=== PATIENT | male | born 1975 | race Two or more races ===

== ENCOUNTER 2025-10-07 07:41 | Emergency (ER) | payer OTHER, SELFPAY ==
[2025-10-07 08:03] VITALS: BP 114/75; PULSE 78; RESP 18; TEMP 36.7; O2SAT 99; BMI 29.5
[2025-10-07 08:25] LABS: Appearance Urine Clear; Glucose Urine UA Negative (Negative); PH 5.5 (5.0-9.0); Specific Gravity - Urine >= 1.030 (1.005-1.025); UMIC TRIGGER UACC YES
--- OUTSIDE RECORDS SUMMARY | 2025-10-07 08:41 | XMS_ITS | Patient Health Record ---
Author Organization [facility] [employer] [facility][MD] Address [address] [place] [address] Support Name Relationship Address Phone ElleEmiu Guarantor Unknown [phone] Reason For Referral No Information Medications Medication SIG (Take, Route, Frequency, Duration) Notes Start Date End Date Status DILTIAZEM 24HR ER 180 mg Capsule Extended Release 24 Hour Take 1 capsule(s) by mouth daily Oral; Duration: 0 *please review for potential update for e-prescription and drug interaction check* Diltiazem HCl 180mg Capsules, Extended Release 11/24/2014 Active Aspirin 81 MG Tablet Chewable 1 tablet once daily Oral; Duration: 0 Aspirin (ASA) 81mg Chewable Tablet 05/05/2014 Active Social History Social History Additional Details Category Social Info Options Details Migrated Social History Migrated Social History Occupation: as a [employer] Employed at [employer] Marital Status: Single Problems Problem Type SNOMED Code ICD Code Onset Dates Problem Status W/U Status Risk Notes Problem Mixed hyperlipidemia (638894889) Mixed hyperlipidemia (272.2) 05/14/20 14 Active confirmed [id number] Problem Atrial fibrillation (46158471) Atrial fibrillation (427.31) 05/05/20 14 Active confirmed [id number] Problem Prediabetes (713058723) Prediabetes (790.29) 05/14/20 14 Active confirmed [id number]- Problem Hypertension (62393792) Hypertension (401.1) 11/24/19 15 Active confirmed [id number] Problem Low back pain (946392034) Low back pain (724.2) 11/06/19 15 Problem resolved confirmed [id number] Problem Shoulder pain (84869844) Shoulder pain (719.41) 05/05/20 14 Problem resolved confirmed [id number] Plan Of Treatment No Information Insurance Providers Payer Name Payer Address Payer Phone Subscriber Number Group Number Insured Name Patient Relationship to Insured Coverage Start Date Coverage End Date [facility] + [address] [place] [phone] [id number] Eh Almeida Self - patient is the insured
--- OUTSIDE RECORDS SUMMARY | 2025-10-07 08:41 | XMS_ITS | Patient Health Record ---
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 Metabolic Panel ([id number] Reviewed date:10/18/2024 08:27:43 AM Interpretation: Performing Lab:[facility] [place], [address] [facility], Phone - [phone], Director - MDJodry Notes/Report: Glucose 117 70-99 mg/dL H BUN 21 6-24 mg/dL Creatinine 1.12 0.76-1.27 mg/dL eGFR 80 >59 mL/min/1.73 BUN/Creatinine Ratio 19 9-20 Sodium 142 134-144 mmol/L Potassium 4.1 3.5-5.2 mmol/L Chloride 104 96-106 mmol/L Carbon Dioxide, Total 22 20-29 mmol/L Calcium 9.2 8.7-10.2 mg/dL Protein, Total 6.7 6.0-8.5 g/dL Albumin 4.2 4.1-5.1 g/dL Globulin, Total 2.5 1.5-4.5 g/dL Bilirubin, Total 0.6 0.0-1.2 mg/dL Alkaline Phosphatase 116 44-121 IU/L AST (SGOT) 22 0-40 IU/L ALT (SGPT) 21 0-44 IU/L Lipid Panel-[id number] Reviewed date:10/18/2024 08:27:43 AM Interpretation: Performing Lab:[facility] [place], [address], [place], Phone - [phone], Director - MDJodry Notes/Report: Cholesterol, Total 256 100-199 mg/dL H Triglycerides 143 0-149 mg/dL HDL Cholesterol 52 >39 mg/dL VLDL Cholesterol Kimani 26 5-40 mg/dL LDL Chol Calc ([facility]) 178 0-99 mg/dL H CBC With Differential/Platel et-[id number] Reviewed date:10/18/2024 08:27:43 AM Interpretation: Performing Lab:[facility], [address] [facility], Phone - [phone], Director - Ramonita Notes/Report: WBC 9.6 3.4-10.8 x10E3/uL RBC 5.36 4.14-5.80 x10E6/uL Hemoglobin 16.1 13.0-17.7 g/dL Hematocrit 48.1 37.5-51.0 % MCV 90 79-97 fL MCH 30.0 26.6-33.0 pg MCHC 33.5 31.5-35.7 g/dL RDW 13.0 11.6-15.4 % Platelets 248 150-450 x10E3/uL Neutrophils 54 Not Estab. % Lymphs 30 Not Estab. % Monocytes 9 Not Estab. % Eos 6 Not Estab. % Basos 1 Not Estab. % Neutrophils (Absolute) 5.2 1.4-7.0 x10E3/uL Lymphs (Absolute) 2.9 0.7-3.1 x10E3/uL Monocytes(Absolute) 0.9 0.1-0.9 x10E3/uL Eos (Absolute) 0.6 0.0-0.4 x10E3/uL H Baso (Absolute) 0.1 0.0-0.2 x10E3/uL Immature Granulocytes 0 Not Estab. % Immature Grans (Abs) 0.0 0.0-0.1 x10E3/uL Hemoglobin [id number] Reviewed date:10/18/2024 08:27:43 AM Interpretation: Performing Lab:[facility], [address] [place] [address], [place], Phone - [phone], Director - Ramonita Notes/Report: Hemoglobin A1c 6.2 4.8-5.6 % H . Prediabetes: 5.7 - 6.4 Diabetes: >6.4 Glycemic control for adults with diabetes: <7.0 Uric Acid-[id number] Reviewed date:10/18/2024 08:27:43 AM Interpretation: Performing Lab:[facility] [place], Phone - [phone], - Ramonita Notes/Report: Uric Acid 6.0 3.8-8.4 mg/dL Therapeutic target for gout patients: <6.0 Lipid Panel-[id number] Reviewed date:02/11/2025 08:04:03 AM Interpretation: Performing Lab:[facility], [address] [place] [address], Phone - [phone], Director Nerissa Shipman Notes/Report: Cholesterol, Total 275 100-199 mg/dL H Triglycerides 79 0-149 mg/dL HDL Cholesterol 60 >39 mg/dL VLDL Cholesterol Kimani 13 5-40 mg/dL LDL Chol Calc ([facility]) 202 0-99 mg/dL H LDL Calc Comment: Consider evaluating for Familial Hypercholesterolemia(FH), if clinically indicated. Lipid Panel-[id number] Reviewed date:06/17/2025 07:55:08 AM Interpretation: Performing Lab:[facility], [address] [place] [address], Phone - [phone], Director Nerissa Shipman Notes/Report: Cholesterol, Total 204 100-199 mg/dL H Triglycerides 103 0-149 mg/dL HDL Cholesterol 54 >39 mg/dL VLDL Cholesterol Kimani 18 5-40 mg/dL LDL Chol Calc ([facility]) 132 0-99 mg/dL H Hemoglobin [id number] Reviewed date:06/17/2025 07:55:11 AM Interpretation: Performing Lab:[facility], [address] [place] [address], Phone - [phone], Director Nerissa Shipman Notes/Report: Hemoglobin A1c 6.1 4.8-5.6 % H . Prediabetes: 5.7 - 6.4 Diabetes: >6.4 Glycemic control for adults with diabetes: <7.0 Hemoglobin [id number] Reviewed date:02/11/2025 08:03:54 AM Interpretation: Performing Lab:[facility] [address] [place] [address], Phone - [phone], Director Nerissa Shipman Notes/Report: Hemoglobin A1c 5.9 4.8-5.6 % H . Prediabetes: 5.7 - 6.4 Diabetes: >6.4 Glycemic control for adults with diabetes: <7.0 Reason For Referral Reason persistent rash, marv luate & treat. Diagnosis 1 Follicular disorder, unspecified (L73.9) Referral Organization [facility] [address] Referring Provider First Name AISSATOU Referring Provider Last Name BAILON Referring Provider Speciality Internal M edicine Referred Provider Specialty Dermatology General Notes Christiane Mcintosh 2023 11:40:21 AM > [facility], [place], [address] [facility], [address], [place] [address], , Referral Priority Routine Medications Medication SIG (Take, Route, Frequency, Duration) Notes Start Date End Date Status Hydrocortisone 100 MG/60ML Enema 60 mL in the evening prn Rectal Once a day; Duration: 30 days 10/18/2024 Active Dupixent 300 MG/2ML Solution Auto-injector Subcutaneous; Duration: 28 Days Active Hibiclens 4 % Solution as directed Exter william twice a week; Duration: 30 days 02/12/2024 Not-Taking Berberine HCI Active Atorvastatin Calcium 20 MG Tablet TAKE 1 TABLET BY MOUTH EVERY DAY FOR 90 DAYS; Duration: 90 Active Immunizations Vaccine Route Administration Date Status Comme nts influenza IM Intramuscular 07/17/2023 Administered Tdap IM Intramuscular 10/18/2024 Administered Social History Tobacco Use: Social History Observation Description Date Details (start date - stop date) Never Smoker NA - NA Social History Tobacco Use: Social Info Question Answer Notes Tobacco Use/Smoking Are you a nonsmoker Section Notes: work: [email or web address] work: [email or web address] Tob: Social, younger, declines now ETOH: < 1 drink weekly Drug: Cannibas work: [email or web address] work: [email or web address] work: [email or web address] Tob: Social, younger ETOH: None Drug: Cannibas work: [email or web address] Tob: Social, younger ETOH: None Drug: Cannibas work: [email or web address] Tob: Social, younger, declines now ETOH: < 1 drink weekly Drug: Cannibas work: [email or web address] Tob: Social, younger, declines now ETOH: < 1 drink weekly Drug: Cannibas work: [email or web address] work: [email or web address] Problems Problem Type SNOMED Code ICD Code Onset Dates Problem Status W/U Status Risk Notes Problem Vitamin D deficiency (25738496) Vitamin D deficiency, unspecified (E55.9) Active confirmed Problem Folliculitis (37853277) Follicular disorder, unspecified (L73.9) Active confirmed Problem Lipid screening (949567953) Encounter for screening for lipoid disorders (Z13.220) Active confirmed Problem Prediabetes (881578219) Prediabetes (R73.03) Active confirmed Problem Anxiety (01275762) Anxiety (F41.9) Active confi rmed Problem Hyperlipoproteinemia (3069146) Acquired hyperlipoproteinemia (E78.5) Active confirmed Problem Adult health examination (671405051) Adult general medical exam (Z00.00) Active confirmed Problem Atrial fibrillation (19286961) Atrial fibrillation, unspecified type (I48.91) Active confirmed Problem Posttraumatic stress disorder (49297685) PTSD (post-traumatic stress disorder) (F43.10) Active confirmed Problem Seasonal allergy (390272607) Seasonal allergies (J30.2) Active confirmed Problem Erectile dysfunction (disorder) (697001961) Erectile dysfunction, unspecified erectile dysfunction type (N52.9) Active confirmed Problem Diabetes mellitus screening (844962921) Diabetes mellitus screening (Z13.1) Active confirmed Problem Nephrolithiasis (42750039) Nephrolithiasis (N20.0) Active confirmed Problem Allergic rhinitis caused by pollen (83832439) Seasonal allergic rhinitis due to pollen (J30.1) Active confirmed Problem Type II diabetes mellitus without complication (715633484) Type 2 diabetes mellitus without complication, unspecified whether nursing home insulin use (E11.9) Active confirmed Problem BMI 30+ - obesity (981532473) BMI 32.0-32.9,adult (Z68.32) Active confirmed Problem Body mass index 30.0 0 to 34.99 (151950953433836) BMI 31.0-31.9,adult (Z68.31) Active confirmed Problem Elevated fasting lipid profile (649807779437) Elevated lipids (E78.5) Active confirmed Problem Hyperlipidemia (74756954) Hyperlipidemia (E78.5) Active confirmed Vital Signs Heart Rate 99 /min 06/17/2025 Oximetry 97 % 06/17/2025 Blood pressure diastolic 82 mm Hg 06/17/2025 Height 71 in 06/17/2025 Blood pressure systolic 128 mm Hg 06/17/2025 Weight 225.3 lbs 06/17/2025 BMI 31.42 kg/m2 06/17/2025 Encounters Encounter Location Date Provider Diagnosis [facility] [address] [place] [address] 10/18/2024 AISSATOU BAILON Atrial fibrillation, unspecified type I48.91 ; Wellness examination Z00.00 ; Folliculitis L73.9 ; Seasonal allergies J30.2 ; Anxiety F41.9 ; PTSD (post-traumatic stress disorder) F43.10 ; Erectile dysfunction, unspecified erectile dysfunction type N52.9 ; Hyperlipidemia E78.5 ; Prediabetes R73.03 and Encounter for immunization [address] [facility] [address] [place] [address] 02/18/2025 AISSATOU BAILON Folliculitis L73.9 ; Hyperlipidemia E78.5 ; Seasonal allergies J30.2 ; Anxiety F41.9 ; PTSD (post-traumatic stress disorder) F43.10 and Prediabetes R73.03 [facility] [address] [place] [address] 06/17/2025 AISSATOU BAILON Folliculitis L73.9 ; Hyperlipidemia E78.5 ; Seasonal allergies J30.2 ; Anxiety F41.9 ; PTSD (post-traumatic stress disorder) F43.10 ; Prediabetes R73.03 and Encounter for examination of blood pressure without abnormal findings Z01.30 Assessments Encounter Date Diagnosis (ICD Code) Assessment Notes Treatment Notes Treatment Clinical Notes Section Notes 10/18/2024 Atrial fibrillation, unspecified type (ICD-10 - I48.91) # Folliculitis: Using Hibiclens, and tacrolimus ointmentWith no improvement. Referring to dermatology # Internal hemorrhoids post colonoscopy in 2022 at [facility]. Will obtain record, but treating with hydrocortisone enema as needed. No red flag symptoms at this time but did discuss criteria to call the office/emergency department criteria or criteria for referral. # Nephrolithiasis: Following with urologist, Past stones. #Atrial fibrillation: Patient was diagnosed with atrial fibrillation back in 2012. No longer on any medications, following with Dr. Indio Billy at [facility] cardiology. #Obesity BMI. Educated on lifestyle modifications., Have struggled with the holidays but ready to get back on track. #PTSD/anxiety: Patient states this is managed at this time. He does smoke marijuana for this, and had a medical marijuana card in [place] #Prediabetes: Hemoglobin A1c 6.2, Recent improved to 5.9 @ last visit.And now increased back to 6.2. Patient stopped taking berberine. Will continue taking berberine. Check in 3 to 4 months. #Hyperlipidemia: Total cholesterol 242 at last visit.Repeat value showing on 10/18/2024 increased lipid panel to 256, LDL 156. Start atorvastatin 10 mg. Discussed proper use and side effects repeat value in 3 to 4 months # Patient up-to-date on flu/COVID-vaccine due for Tdap obtained today. Healthcare proxy filled out it is his . PHQ-9 with a total score of 4, no concern regarding mental health at this time. Follow-up in 3 to 4 months for repeat hemoglobin A1c and lipid, sooner as needed. Patient seen and examined. Comprehensive discussion was done on the following. 1. Nutrition: It is important to follow a healthy diet based on lots of vegetables and legumes and good fat. Avoid processed food and processed carbohydrates. Prepare your own meals. Read labels and avoid high fructose corn syrup, processed chemicals added to increase shelf life and preprepared meals. Avoid fast foods. Eat slowly and plan meals for a week. Try to count calories and be mindful of daily calorie intake. Get into the habit of keeping an eye on your weight by using an appropriate scale. Learn to log exercise and discussed fitness Apps like [employer] which can help keep log off calories taken versus calories burned. Local food should be preferred. Discussed Dirty Dozen Versus Clean Fifteen. Discussed healthy supplements like fish oil, Tumeric, Curcumin, Melatonin, Resveratrol, Probiotics, Vitamin-D, Alpha-Lipoic acid, Vitamin-D and coconut oil. 2. It is important to exercise regularly. Is a good habit to walk at least 30 minutes a day. Gentle weightlifting with standard precautions to protect the back. Finding activity like cycling or hiking and get into the habit of engaging in it. Stretching before and after the exercises important. It is also important to contact me if there are any problems like shortness of breath, chest pain, back pain and joint or muscle pain associated with the exercise. 3. Discussed age appropriate screening guidelines. Colonoscopy needs to start at age 50 with stool for occult blood as appropriate. There is a new test that can test for genetic abnormalities in the stool sample, Cologuard. This would not replace a colonoscopy but could be used as a screening tool for patients who do not want a colonoscopy. We discussed the importance of early detection of colon cancer. 4. Discussed current PSA screening. PSA screening can be done in most patients between age 50 and 65. However early detection of prostate cancer needs to carefully be balanced with complications with treatment. These include incontinence, impotence etc. Each patient should decide if they would like to have this test. 5. Discussed safe driving and no use of smart phone while driving 6. Age-appropriate immunizations were discussed. A tetanus booster is needed every 10 years. Flu vaccine is recommended every year just before the start of the flu season. Shingles vaccine is recommended after age 50 but not all insurances cover it. Pneumonia vaccine is given after age 65 unless there are certain comorbidities for which it is started earlier. 7. Diagnostic labs were discussed. These could include/not limited to CBC CMP and lipids with fasting blood glucose and insulin levels. Vitamin D and hemoglobin A1c testing might be appropriate. All quetsions answered to patients satisfaction. Patient verbalized understanding of diagnosis and treatments explained. To call sooner prior to next visit it any questions/concerns arise. Case discussed with collaborating physician Eric Schneider who reviewed the assessment and plan. Chart, medications, labs, vital signs reviewed. Dictation was accomplished with the use of Broad[employer][email or web address] voice recognition software, prone to medical misidentifications and grammatical errors. This is unintentional and the practitioner does try to identify and correct these, but some could still be present. Please do not hesitate to contact practitioner for clarification. 10/18/2024 Wellness examination (ICD-10 - Z00.00) # Folliculitis: Using Hibiclens, and tacrolimus ointmentWith no improvement. Referring to dermatology # Internal hemorrhoids post colonoscopy in 2022 at [facility]. Will obtain record, but treating with hydrocortisone enema as needed. No red flag symptoms at this time but did discuss criteria to call the office/emergency department criteria or criteria for referral. # Nephrolithiasis: Following with urologist, Past stones. #Atrial fibrillation: Patient was diagnosed with atrial fibrillation back in 2012. No longer on any medications, following with Dr. Indio Billy at [facility] cardiology. #Obesity BMI. Educated on lifestyle modifications., Have struggled with the holidays but ready to get back on track. #PTSD/anxiety: Patient states this is managed at this time. He does smoke marijuana for this, and had a medical marijuana card in [place] #Prediabetes: Hemoglobin A1c 6.2, Recent improved to 5.9 @ last visit.And now increased back to 6.2. Patient stopped taking berberine. Will continue taking berberine. Check in 3 to 4 months. #Hyperlipidemia: Total cholesterol 242 at last visit.Repeat value showing on 10/18/2024 increased lipid panel to 256, LDL 156. Start atorvastatin 10 mg. Discussed proper use and side effects repeat value in 3 to 4 months # Patient up-to-date on flu/COVID-vaccine due for Tdap obtained today. Healthcare proxy filled out it is his . PHQ-9 with a total score of 4, no concern regarding mental health at this time. Follow-up in 3 to 4 months for repeat hemoglobin A1c and lipid, sooner as needed. Patient seen and examined. Comprehensive discussion was done on the following. 1. Nutrition: It is important to follow a healthy diet based on lots of vegetables and legumes and good fat. Avoid processed food and processed carbohydrates. Prepare your own meals. Read labels and avoid high fructose corn syrup, processed chemicals added to increase shelf life and preprepared meals. Avoid fast foods. Eat slowly and plan meals for a week. Try to count calories and be mindful of daily calorie intake. Get into the habit of keeping an eye on your weight by using an appropriate scale. Learn to log exercise and discussed fitness Apps like [employer] which can help keep log off calories taken versus calories burned. Local food should be preferred. Discussed Dirty Dozen Versus Clean Fifteen. Discussed healthy supplements like fish oil, Tumeric, Curcumin, Melatonin, Resveratrol, Probiotics, Vitamin-D, Alpha-Lipoic acid, Vitamin-D and coconut oil. 2. It is important to exercise regularly. Is a good habit to walk at least 30 minutes a day. Gentle weightlifting with standard precautions to protect the back. Finding activity like cycling or hiking and get into the habit of engaging in it. Stretching before and after the exercises important. It is also important to contact me if there are any problems like shortness of breath, chest pain, back pain and joint or muscle pain associated with the exercise. 3. Discussed age appropriate screening guidelines. Colonoscopy needs to start at age 50 with stool for occult blood as appropriate. There is a new test that can test for genetic abnormalities in the stool sample, Cologuard. This would not replace a colonoscopy but could be used as a screening tool for patients who do not want a colonoscopy. We discussed the importance of early detection of colon cancer. 4. Discussed current PSA screening. PSA screening can be done in most patients between age 50 and 65. However early detection of prostate cancer needs to carefully be balanced with complications with treatment. These include incontinence, impotence etc. Each patient should decide if they would like to have this test. 5. Discussed safe driving and no use of smart phone while driving 6. Age-appropriate immunizations were discussed. A tetanus booster is needed every 10 years. Flu vaccine is recommended every year just before the start of the flu season. Shingles vaccine is recommended after age 50 but not all insurances cover it. Pneumonia vaccine is given after age 65 unless there are certain comorbidities for which it is started earlier. 7. Diagnostic labs were discussed. These could include/not limited to CBC CMP and lipids with fasting blood glucose and insulin levels. Vitamin D and hemoglobin A1c testing might be appropriate. All quetsions answered to patients satisfaction. Patient verbalized understanding of diagnosis and treatments explained. To call sooner prior to next visit it any questions/concerns arise. Case discussed with collaborating physician Eric Schneider who reviewed the assessment and plan. Chart, medications, labs, vital signs reviewed. Dictation was accomplished with the use of Broadcast[employer][email or web address] voice recognition software, prone to medical misidentifications and grammatical errors. This is unintentional and the practitioner does try to identify and correct these, but some could still be present. Please do not hesitate to contact practitioner for clarification. 02/18/2025 Folliculitis (ICD-10 - L73.9) # Left shoulder pain: Fell 3 months ago on ice, followed with [facility], x-rays negative, PT with some improvement. Yesterday was lifting boxes around his house, and now is continuing to endorse left shoulder pain. Questioning rotator cuff ideology but patient wants to hold off on imaging at this time. Will start with meloxicam, discussed proper use, side effects. If continued symptoms, recommended following with orthopedics who he is already established with. # Folliculitis: Using Hibiclens, and tacrolimus ointment With Minimal improvement. Following with dermatology. Dermatology started patient on Dupixent. # Internal hemorrhoids post colonoscopy in 2022 at [facility]. Treating with hydrocortisone enema as needed. No red flag symptoms at this time but did discuss criteria to call the office/emergency department criteria or criteria for referral. # Nephrolithiasis: Following with urologist, Past stones. #Atrial fibrillation: Patient was diagnosed with atrial fibrillation back in 2012. No longer on any medications, following with Dr. Indio Billy at [facility] cardiology. #Obesity BMI. Educated on lifestyle modifications., Have struggled with the holidays but ready to get back on track. #PTSD/anxiety: Patient states this is managed at this time. He does smoke marijuana for this, and had a medical marijuana card in [place] #Prediabetes: A1c September 2024 6.2 improved to 5.29 January 2025. Continue berberine and lifestyle #Hyperlipidemia: Total cholesterol 242 at last visit.Repeat value showing on 10/18/2024 increased lipid panel to 256, LDL 156. Started atorvastatin 10 mg at last visit, has been inconsistent, but cholesterol continues to increase January2025 to 275, LDL 202. Increase atorvastatin to 20 mg. Declines coronary calcium scan. # Patient up-to-date on flu/COVID-vaccine/ Tdap. Healthcare [place] [facility] [place] . PHQ-9 with a total score of 4, no concern regarding mental health at this time. Patient to follow-up in 4 months for repeat lipid, sooner as needed All quetsions answered to patients satisfaction. Patient verbalized understanding of diagnosis and treatments explained. To call sooner prior to next visit it any questions/concerns arise. Case discussed with collaborating physician Eric Schneider who reviewed the assessment and plan. Chart, medications, labs, vital signs reviewed. Dictation was accomplished with the use of Broadcast.[email or web address] voice recognition software, prone to medical misidentifications and grammatical errors. This is unintentional and the practitioner does try to identify and correct these, but some could still be present. Please do not hesitate to contact practitioner for clarification. 02/18/2025 Hyperlipidemia (ICD-10 - E78.5) # Left shoulder pain: Fell 3 months ago on ice, followed with [facility], x-rays negative, PT with some improvement. Yesterday was lifting boxes around his house, and now is continuing to endorse left shoulder pain. Questioning rotator cuff ideology but patient wants to hold off on imaging at this time. Will start with meloxicam, discussed proper use, side effects. If continued symptoms, recommended following with orthopedics who he is already established with. # Folliculitis: Using Hibiclens, and tacrolimus ointment With Minimal improvement. Following with dermatology. Dermatology started patient on Dupixent. # Internal hemorrhoids post colonoscopy in 2022 at [facility]. Treating with hydrocortisone enema as needed. No red flag symptoms at this time but did discuss criteria to call the office/emergency department criteria or criteria for referral. # Nephrolithiasis: Following with urologist, Past stones. #Atrial fibrillation: Patient was diagnosed with atrial fibrillation back in 2012. No longer on any medications, following with Dr. Indio Billy at [facility] cardiology. #Obesity BMI. Educated on lifestyle modifications., Have struggled with the holidays but ready to get back on track. #PTSD/anxiety: Patient states this is managed at this time. He does smoke marijuana for this, and had a medical marijuana card in [place] #Prediabetes: A1c September 2024 6.2 improved to 5.29 January 2025. Continue berberine and lifestyle #Hyperlipidemia: Total cholesterol 242 at last visit.Repeat value showing on 10/18/2024 increased lipid panel to 256, LDL 156. Started atorvastatin 10 mg at last visit, has been inconsistent, but cholesterol continues to increase January2025 to 275, LDL 202. Increase atorvastatin to 20 mg. Declines coronary calcium scan. # Patient up-to-date on flu/COVID-vaccine/ Tdap. [place] [facility] [place] . PHQ-9 with a total score of 4, no concern regarding mental health at this time. Patient to follow-up in 4 months for repeat lipid, sooner as needed All quetsions answered to patients satisfaction. Patient verbalized understanding of diagnosis and treatments explained. To call sooner prior to next visit it any questions/concerns arise. Case discussed with collaborating physician Eric Schneider who reviewed the assessment and plan. Chart, medications, labs, vital signs reviewed. Dictation was accomplished with the use of Broadcast[employer][email or web address] voice recognition software, prone to medical misidentifications and grammatical errors. This is unintentional and the practitioner does try to identify and correct these, but some could still be present. Please do not hesitate to contact practitioner for clarification. 06/17/2025 Folliculitis (ICD-10 - L73.9) # Folliculitis: Using Hibiclens, and tacrolimus ointment With Minimal improvement. Following with dermatology. Dermatology started patient on Dupixent. # Internal hemorrhoids post colonoscopy in 2022 at [facility]. Treating with hydrocortisone enema as needed. No red flag symptoms at this time but did discuss criteria to call the office/emergency department criteria or criteria for referral. # Nephrolithiasis: Following with urologist, Past stones. #Atrial fibrillation: Patient was diagnosed with atrial fibrillation back in 2012. No longer on any medications, following with Dr. Indio Billy at [facility] cardiology. #Obesity BMI. Educated on lifestyle modifications. #PTSD/anxiety: Patient states this is managed at this time. He does smoke marijuana for this, and had a medical marijuana card in [place] #Prediabetes: A1c September 2024 6.2 improved to 5.29 January 2025. A1c May 2025 increased to 6.1.Stopped berberine, going to restart and continue with lifestyle. Declines metformin. #Hyperlipidemia: Total cholesterol 242 at last visit.Repeat value showing on 10/18/2024 increased lipid panel to 256, LDL 156. Cholesterol May 2025 204, LDL 132, Continue with atorvastatin 20 mg. Declines coronary calcium scan. Declines coronary calcium scan. # Patient up-to-date on flu/COVID-vaccine/ Tdap. [place] [facility] [place] . PHQ-9 with a total score of 4, no concern regarding mental health at this time. Follow-up in October for complete physical with fasting labs, sooner as needed All quetsions answered to patients satisfaction. Patient verbalized understanding of diagnosis and treatments explained. To call sooner prior to next visit it any questions/concerns arise. Case discussed with collaborating physician Eric Schneider who reviewed the assessment and plan. Chart, medications, labs, vital signs reviewed. Dictation was accomplished with the use of [email or web address] voice recognition software, prone to medical misidentifications and grammatical errors. This is unintentional and the practitioner does try to identify and correct these, but some could still be present. Please do not hesitate to contact practitioner for clarification. 06/17/2025 Seasonal allergies (ICD-10 - J30.2) # Folliculitis: Using Hibiclens, and tacrolimus ointment With Minimal improvement. Following with dermatology. Dermatology started patient on Dupixent. # Internal hemorrhoids post colonoscopy in 2022 at [facility]. Treating with hydrocortisone enema as needed. No red flag symptoms at this time but did discuss criteria to call the office/emergency department criteria or criteria for referral. # Nephrolithiasis: Following with urologist, Past stones. #Atrial fibrillation: Patient was diagnosed with atrial fibrillation back in 2012. No longer on any medications, following with Dr. Indio Billy at [facility] cardiology. #Obesity BMI. Educated on lifestyle modifications. #PTSD/anxiety: Patient states this is managed at this time. He does smoke marijuana for this, and had a medical marijuana card in [place] #Prediabetes: A1c September 2024 6.2 improved to 5.29 January 2025. A1c May 2025 increased to 6.1.Stopped berberine, going to restart and continue with lifestyle. Declines metformin. #Hyperlipidemia: Total cholesterol 242 at last visit.Repeat value showing on 10/18/2024 increased lipid panel to 256, LDL 156. Cholesterol May 2025 204, LDL 132, Continue with atorvastatin 20 mg. Declines coronary calcium scan. Declines coronary calcium scan. # Patient up-to-date on flu/COVID-vaccine/ Tdap. Healthcare [place] [facility] [place] . PHQ-9 with a total score of 4, no concern regarding mental health at this time. Follow-up in October for complete physical with fasting labs, sooner as needed All quetsions answered to patients satisfaction. Patient verbalized understanding of diagnosis and treatments explained. To call sooner prior to next visit it any questions/concerns arise. Case discussed with collaborating physician Eric Schneider who reviewed the assessment and plan. Chart, medications, labs, vital signs reviewed. Dictation was accomplished with the use of [email or web address] voice recognition software, prone to medical misidentifications and grammatical errors. This is unintentional and the practitioner does try to identify and correct these, but some could still be present. Please do not hesitate to contact practitioner for clarification. 06/17/2025 Hyperlipidemia (ICD-10 - E78.5) # Folliculitis: Using Hibiclens, and tacrolimus ointment With Minimal improvement. Following with dermatology. Dermatology started patient on Dupixent. # Internal hemorrhoids post colonoscopy in 2022 at [facility]. Treating with hydrocortisone enema as needed. No red flag symptoms at this time but did discuss criteria to call the office/emergency department criteria or criteria for referral. # Nephrolithiasis: Following with urologist, Past stones. #Atrial fibrillation: Patient was diagnosed with atrial fibrillation back in 2012. No longer on any medications, following with Dr. Indio Billy at [facility] cardiology. #Obesity BMI. Educated on lifestyle modifications. #PTSD/anxiety: Patient states this is managed at this time. He does smoke marijuana for this, and had a medical marijuana card in [place] #Prediabetes: A1c September 2024 6.2 improved to 5.29 January 2025. A1c May 2025 increased to 6.1.Stopped berberine, going to restart and continue with lifestyle. Declines metformin. #Hyperlipidemia: Total cholesterol 242 at last visit.Repeat value showing on 10/18/2024 increased lipid panel to 256, LDL 156. Cholesterol May 2025 204, LDL 132, Continue with atorvastatin 20 mg. Declines coronary calcium scan. Declines coronary calcium scan. # Patient up-to-date on flu/COVID-vaccine/ Tdap. Healthcare [place] [facility] [place] . PHQ-9 with a total score of 4, no concern regarding mental health at this time. Follow-up in October for complete physical with fasting labs, sooner as needed All quetsions answered to patients satisfaction. Patient verbalized understanding of diagnosis and treatments explained. To call sooner prior to next visit it any questions/concerns arise. Case discussed with collaborating physician Eric Schneider who reviewed the assessment and plan. Chart, medications, labs, vital signs reviewed. Dictation was accomplished with the use of [email or web address] voice recognition software, prone to medical misidentifications and grammatical errors. This is unintentional and the practitioner does try to identify and correct these, but some could still be present. Please do not hesitate to contact practitioner for clarification. 02/18/2025 Seasonal allergies (ICD-10 - J30.2) # Left shoulder pain: Fell 3 months ago on ice, followed with [facility], x-rays negative, PT with some improvement. Yesterday was lifting boxes around his house, and now is continuing to endorse left shoulder pain. Questioning rotator cuff ideology but patient wants to hold off on imaging at this time. Will start with meloxicam, discussed proper use, side effects. If continued symptoms, recommended following with orthopedics who he is already established with. # Folliculitis: Using Hibiclens, and tacrolimus ointment With Minimal improvement. Following with dermatology. Dermatology started patient on Dupixent. # Internal hemorrhoids post colonoscopy in 2022 at [facility]. Treating with hydrocortisone enema as needed. No red flag symptoms at this time but did discuss criteria to call the office/emergency department criteria or criteria for referral. # Nephrolithiasis: Following with urologist, Past stones. #Atrial fibrillation: Patient was diagnosed with atrial fibrillation back in 2012. No longer on any medications, following with Dr. Indio Billy at [facility] cardiology. #Obesity BMI. Educated on lifestyle modifications., Have struggled with the holidays but ready to get back on track. #PTSD/anxiety: Patient states this is managed at this time. He does smoke marijuana for this, and had a medical marijuana card in [place] #Prediabetes: A1c September 2024 6.2 improved to 5.29 January 2025. Continue berberine and lifestyle #Hyperlipidemia: Total cholesterol 242 at last visit.Repeat value showing on 10/18/2024 increased lipid panel to 256, LDL 156. Started atorvastatin 10 mg at last visit, has been inconsistent, but cholesterol continues to increase January2025 to 275, LDL 202. Increase atorvastatin to 20 mg. Declines coronary calcium scan. # Patient up-to-date on flu/COVID-vaccine/ Tdap. Healthcare [place] [facility] [place] . PHQ-9 with a total score of 4, no concern regarding mental health at this time. Patient to follow-up in 4 months for repeat lipid, sooner as needed All quetsions answered to patients satisfaction. Patient verbalized understanding of diagnosis and treatments explained. To call sooner prior to next visit it any questions/concerns arise. Case discussed with collaborating physician Eric Schneider who reviewed the assessment and plan. Chart, medications, labs, vital signs reviewed. Dictation was accomplished with the use of [email or web address] voice recognition software, prone to medical misidentifications and grammatical errors. This is unintentional and the practitioner does try to identify and correct these, but some could still be present. Please do not hesitate to contact practitioner for clarification. 10/18/2024 Folliculitis (ICD-10 - L73.9) # Folliculitis: Using Hibiclens, and tacrolimus ointmentWith no improvement. Referring to dermatology # Internal hemorrhoids post colonoscopy in 2022 at [facility]. Will obtain record, but treating with hydrocortisone enema as needed. No red flag symptoms at this time but did discuss criteria to call the office/emergency department criteria or criteria for referral. # Nephrolithiasis: Following with urologist, Past stones. #Atrial fibrillation: Patient was diagnosed with atrial fibrillation back in 2012. No longer on any medications, following with Dr. Indio Billy at [facility] cardiology. #Obesity BMI. Educated on lifestyle modifications., Have struggled with the holidays but ready to get back on track. #PTSD/anxiety: Patient states this is managed at this time. He does smoke marijuana for this, and had a medical marijuana card in [place] #Prediabetes: Hemoglobin A1c 6.2, Recent improved to 5.9 @ last visit.And now increased back to 6.2. Patient stopped taking berberine. Will continue taking berberine. Check in 3 to 4 months. #Hyperlipidemia: Total cholesterol 242 at last visit.Repeat value showing on 10/18/2024 increased lipid panel to 256, LDL 156. Start atorvastatin 10 mg. Discussed proper use and side effects repeat value in 3 to 4 months # Patient up-to-date on flu/COVID-vaccine due for Tdap obtained today. Healthcare proxy filled out it is his . PHQ-9 with a total score of 4, no concern regarding mental health at this time. Follow-up in 3 to 4 months for repeat hemoglobin A1c and lipid, sooner as needed. Patient seen and examined. Comprehensive discussion was done on the following. 1. Nutrition: It is important to follow a healthy diet based on lots of vegetables and legumes and good fat. Avoid processed food and processed carbohydrates. Prepare your own meals. Read labels and avoid high fructose corn syrup, processed chemicals added to increase shelf life and preprepared meals. Avoid fast foods. Eat slowly and plan meals for a week. Try to count calories and be mindful of daily calorie intake. Get into the habit of keeping an eye on your weight by using an appropriate scale. Learn to log exercise and discussed fitness Apps like myfitnesspal/loseit which can help keep log off calories taken versus calories burned. Local food should be preferred. Discussed Dirty Dozen Versus Clean Fifteen. Discussed healthy supplements like fish oil, Tumeric, Curcumin, Melatonin, Resveratrol, Probiotics, Vitamin-D, Alpha-Lipoic acid, Vitamin-D and coconut oil. 2. It is important to exercise regularly. Is a good habit to walk at least 30 minutes a day. Gentle weightlifting with standard precautions to protect the back. Finding activity like cycling or hiking and get into the habit of engaging in it. Stretching before and after the exercises important. It is also important to contact me if there are any problems like shortness of breath, chest pain, back pain and joint or muscle pain associated with the exercise. 3. Discussed age appropriate screening guidelines. Colonoscopy needs to start at age 50 with stool for occult blood as appropriate. There is a new test that can test for genetic abnormalities in the stool sample, Cologuard. This would not replace a colonoscopy but could be used as a screening tool for patients who do not want a colonoscopy. We discussed the importance of early detection of colon cancer. 4. Discussed current PSA screening. PSA screening can be done in most patients between age 50 and 65. However early detection of prostate cancer needs to carefully be balanced with complications with treatment. These include incontinence, impotence etc. Each patient should decide if they would like to have this test. 5. Discussed safe driving and no use of smart phone while driving 6. Age-appropriate immunizations were discussed. A tetanus booster is needed every 10 years. Flu vaccine is recommended every year just before the start of the flu season. Shingles vaccine is recommended after age 50 but not all insurances cover it. Pneumonia vaccine is given after age 65 unless there are certain comorbidities for which it is started earlier. 7. Diagnostic labs were discussed. These could include/not limited to CBC CMP and lipids with fasting blood glucose and insulin levels. Vitamin D and hemoglobin A1c testing might be appropriate. All quetsions answered to patients satisfaction. Patient verbalized understanding of diagnosis and treatments explained. To call sooner prior to next visit it any questions/concerns arise. Case discussed with collaborating physician Eric Schneider who reviewed the assessment and plan. Chart, medications, labs, vital signs reviewed. Dictation was accomplished with the use of [email or web address] voice recognition software, prone to medical misidentifications and grammatical errors. This is unintentional and the practitioner does try to identify and correct these, but some could still be present. Please do not hesitate to contact practitioner for clarification. 10/18/2024 Seasonal allergies (ICD-10 - J30.2) # Folliculitis: Using Hibiclens, and tacrolimus ointmentWith no improvement. Referring to dermatology # Internal hemorrhoids post colonoscopy in 2022 at [facility]. Will obtain record, but treating with hydrocortisone enema as needed. No red flag symptoms at this time but did discuss criteria to call the office/emergency department criteria or criteria for referral. # Nephrolithiasis: Following with urologist, Past stones. #Atrial fibrillation: Patient was diagnosed with atrial fibrillation back in 2012. No longer on any medications, following with Dr. Indio Billy at [facility] cardiology. #Obesity BMI. Educated on lifestyle modifications., Have struggled with the holidays but ready to get back on track. #PTSD/anxiety: Patient states this is managed at this time. He does smoke marijuana for this, and had a medical marijuana card in [place] #Prediabetes: Hemoglobin A1c 6.2, Recent improved to 5.9 @ last visit.And now increased back to 6.2. Patient stopped taking berberine. Will continue taking berberine. Check in 3 to 4 months. #Hyperlipidemia: Total cholesterol 242 at last visit.Repeat value showing on 10/18/2024 increased lipid panel to 256, LDL 156. Start atorvastatin 10 mg. Discussed proper use and side effects repeat value in 3 to 4 months # Patient up-to-date on flu/COVID-vaccine due for Tdap obtained today. Healthcare proxy filled out it is his . PHQ-9 with a total score of 4, no concern regarding mental health at this time. Follow-up in 3 to 4 months for repeat hemoglobin A1c and lipid, sooner as needed. Patient seen and examined. Comprehensive discussion was done on the following. 1. Nutrition: It is important to follow a healthy diet based on lots of vegetables and legumes and good fat. Avoid processed food and processed carbohydrates. Prepare your own meals. Read labels and avoid high fructose corn syrup, processed chemicals added to increase shelf life and preprepared meals. Avoid fast foods. Eat slowly and plan meals for a week. Try to count calories and be mindful of daily calorie intake. Get into the habit of keeping an eye on your weight by using an appropriate scale. Learn to log exercise and discussed fitness Apps like Cloudcampal/loseit which can help keep log off calories taken versus calories burned. Local food should be preferred. Discussed Dirty Dozen Versus Clean Fifteen. Discussed healthy supplements like fish oil, Tumeric, Curcumin, Melatonin, Resveratrol, Probiotics, Vitamin-D, Alpha-Lipoic acid, Vitamin-D and coconut oil. 2. It is important to exercise regularly. Is a good habit to walk at least 30 minutes a day. Gentle weightlifting with standard precautions to protect the back. Finding activity like cycling or hiking and get into the habit of engaging in it. Stretching before and after the exercises important. It is also important to contact me if there are any problems like shortness of breath, chest pain, back pain and joint or muscle pain associated with the exercise. 3. Discussed age appropriate screening guidelines. Colonoscopy needs to start at age 50 with stool for occult blood as appropriate. There is a new test that can test for genetic abnormalities in the stool sample, Cologuard. This would not replace a colonoscopy but could be used as a screening tool for patients who do not want a colonoscopy. We discussed the importance of early detection of colon cancer. 4. Discussed current PSA screening. PSA screening can be done in most patients between age 50 and 65. However early detection of prostate cancer needs to carefully be balanced with complications with treatment. These include incontinence, impotence etc. Each patient should decide if they would like to have this test. 5. Discussed safe driving and no use of smart phone while driving 6. Age-appropriate immunizations were discussed. A tetanus booster is needed every 10 years. Flu vaccine is recommended every year just before the start of the flu season. Shingles vaccine is recommended after age 50 but not all insurances cover it. Pneumonia vaccine is given after age 65 unless there are certain comorbidities for which it is started earlier. 7. Diagnostic labs were discussed. These could include/not limited to CBC CMP and lipids with fasting blood glucose and insulin levels. Vitamin D and hemoglobin A1c testing might be appropriate. All quetsions answered to patients satisfaction. Patient verbalized understanding of diagnosis and treatments explained. To call sooner prior to next visit it any questions/concerns arise. Case discussed with collaborating physician Eric Schneider who reviewed the assessment and plan. Chart, medications, labs, vital signs reviewed. Dictation was accomplished with the use of [email or web address] voice recognition software, prone to medical misidentifications and grammatical errors. This is unintentional and the practitioner does try to identify and correct these, but some could still be present. Please do not hesitate to contact practitioner for clarification. 02/18/2025 Anxiety (ICD-10 - F41.9) # Left shoulder pain: Fell 3 months ago on ice, followed with [facility], x-rays negative, PT with some improvement. Yesterday was lifting boxes around his house, and now is continuing to endorse left shoulder pain. Questioning rotator cuff ideology but patient wants to hold off on imaging at this time. Will start with meloxicam, discussed proper use, side effects. If continued symptoms, recommended following with orthopedics who he is already established with. # Folliculitis: Using Hibiclens, and tacrolimus ointment With Minimal improvement. Following with dermatology. Dermatology started patient on Dupixent. # Internal hemorrhoids post colonoscopy in 2022 at [facility]. Treating with hydrocortisone enema as needed. No red flag symptoms at this time but did discuss criteria to call the office/emergency department criteria or criteria for referral. # Nephrolithiasis: Following with urologist, Past stones. #Atrial fibrillation: Patient was diagnosed with atrial fibrillation back in 2012. No longer on any medications, following with Dr. Indio Billy at [facility] cardiology. #Obesity BMI. Educated on lifestyle modifications., Have struggled with the holidays but ready to get back on track. #PTSD/anxiety: Patient states this is managed at this time. He does smoke marijuana for this, and had a medical marijuana card in [place] #Prediabetes: A1c September 2024 6.2 improved to 5.29 January 2025. Continue berberine and lifestyle #Hyperlipidemia: Total cholesterol 242 at last visit.Repeat value showing on 10/18/2024 increased lipid panel to 256, LDL 156. Started atorvastatin 10 mg at last visit, has been inconsistent, but cholesterol continues to increase January2025 to 275, LDL 202. Increase atorvastatin to 20 mg. Declines coronary calcium scan. # Patient up-to-date on flu/COVID-vaccine/ Tdap. [place] [facility] [place] . PHQ-9 with a total score of 4, no concern regarding mental health at this time. Patient to follow-up in 4 months for repeat lipid, sooner as needed All quetsions answered to patients satisfaction. Patient verbalized understanding of diagnosis and treatments explained. To call sooner prior to next visit it any questions/concerns arise. Case discussed with collaborating physician Eric Schneider who reviewed the assessment and plan. Chart, medications, labs, vital signs reviewed. Dictation was accomplished with the use of [email or web address] voice recognition software, prone to medical misidentifications and grammatical errors. This is unintentional and the practitioner does try to identify and correct these, but some could still be present. Please do not hesitate to contact practitioner for clarification. 06/17/2025 Anxiety (ICD-10 - F41.9) # Folliculitis: Using Hibiclens, and tacrolimus ointment With Minimal improvement. Following with dermatology. Dermatology started patient on Dupixent. # Internal hemorrhoids post colonoscopy in 2022 at [facility]. Treating with hydrocortisone enema as needed. No red flag symptoms at this time but did discuss criteria to call the office/emergency department criteria or criteria for referral. # Nephrolithiasis: Following with urologist, Past stones. #Atrial fibrillation: Patient was diagnosed with atrial fibrillation back in 2012. No longer on any medications, following with Dr. Indio Billy at [facility] cardiology. #Obesity BMI. Educated on lifestyle modifications. #PTSD/anxiety: Patient states this is managed at this time. He does smoke marijuana for this, and had a medical marijuana card in [place] #Prediabetes: A1c September 2024 6.2 improved to 5.29 January 2025. A1c May 2025 increased to 6.1.Stopped berberine, going to restart and continue with lifestyle. Declines metformin. #Hyperlipidemia: Total cholesterol 242 at last visit.Repeat value showing on 10/18/2024 increased lipid panel to 256, LDL 156. Cholesterol May 2025 204, LDL 132, Continue with atorvastatin 20 mg. Declines coronary calcium scan. Declines coronary calcium scan. # Patient up-to-date on flu/COVID-vaccine/ Tdap. [place] [facility] [place] . PHQ-9 with a total score of 4, no concern regarding mental health at this time. Follow-up in October for complete physical with fasting labs, sooner as needed All quetsions answered to patients satisfaction. Patient verbalized understanding of diagnosis and treatments explained. To call sooner prior to next visit it any questions/concerns arise. Case discussed with collaborating physician Eric Schneider who reviewed the assessment and plan. Chart, medications, labs, vital signs reviewed. Dictation was accomplished with the use of [employer][email or web address] voice recognition software, prone to medical misidentifications and grammatical errors. This is unintentional and the practitioner does try to identify and correct these, but some could still be present. Please do not hesitate to contact practitioner for clarification. 06/17/2025 PTSD (post-traumatic stress disorder) (ICD-10 - F43.10) # Folliculitis: Using Hibiclens, and tacrolimus ointment With Minimal improvement. Following with dermatology. Dermatology started patient on Dupixent. # Internal hemorrhoids post colonoscopy in 2022 at [facility]. Treating with hydrocortisone enema as needed. No red flag symptoms at this time but did discuss criteria to call the office/emergency department criteria or criteria for referral. # Nephrolithiasis: Following with urologist, Past stones. #Atrial fibrillation: Patient was diagnosed with atrial fibrillation back in 2012. No longer on any medications, following with Dr. Indio Billy at [facility] cardiology. #Obesity BMI. Educated on lifestyle modifications. #PTSD/anxiety: Patient states this is managed at this time. He does smoke marijuana for this, and had a medical marijuana card in [place] #Prediabetes: A1c September 2024 6.2 improved to 5.29 January 2025. A1c May 2025 increased to 6.1.Stopped berberine, going to restart and continue with lifestyle. Declines metformin. #Hyperlipidemia: Total cholesterol 242 at last visit.Repeat value showing on 10/18/2024 increased lipid panel to 256, LDL 156. Cholesterol May 2025 204, LDL 132, Continue with atorvastatin 20 mg. Declines coronary calcium scan. Declines coronary calcium scan. # Patient up-to-date on flu/COVID-vaccine/ Tdap. [place] [facility] [place] . PHQ-9 with a total score of 4, no concern regarding mental health at this time. Follow-up in October for complete physical with fasting labs, sooner as needed All quetsions answered to patients satisfaction. Patient verbalized understanding of diagnosis and treatments explained. To call sooner prior to next visit it any questions/concerns arise. Case discussed with collaborating physician Eric Schneider who reviewed the assessment and plan. Chart, medications, labs, vital signs reviewed. Dictation was accomplished with the use of [email or web address] voice recognition software, prone to medical misidentifications and grammatical errors. This is unintentional and the practitioner does try to identify and correct these, but some could still be present. Please do not hesitate to contact practitioner for clarification. 02/18/2025 PTSD (post-traumatic stress disorder) (ICD-10 - F43.10) # Left shoulder pain: Fell 3 months ago on ice, followed with [facility], x-rays negative, PT with some improvement. Yesterday was lifting boxes around his house, and now is continuing to endorse left shoulder pain. Questioning rotator cuff ideology but patient wants to hold off on imaging at this time. Will start with meloxicam, discussed proper use, side effects. If continued symptoms, recommended following with orthopedics who he is already established with. # Folliculitis: Using Hibiclens, and tacrolimus ointment With Minimal improvement. Following with dermatology. Dermatology started patient on Dupixent. # Internal hemorrhoids post colonoscopy in 2022 at [facility]. Treating with hydrocortisone enema as needed. No red flag symptoms at this time but did discuss criteria to call the office/emergency department criteria or criteria for referral. # Nephrolithiasis: Following with urologist, Past stones. #Atrial fibrillation: Patient was diagnosed with atrial fibrillation back in 2012. No longer on any medications, following with Dr. Indio Billy at [facility] cardiology. #Obesity BMI. Educated on lifestyle modifications., Have struggled with the holidays but ready to get back on track. #PTSD/anxiety: Patient states this is managed at this time. He does smoke marijuana for this, and had a medical marijuana card in [place] #Prediabetes: A1c September 2024 6.2 improved to 5.29 January 2025. Continue berberine and lifestyle #Hyperlipidemia: Total cholesterol 242 at last visit.Repeat value showing on 10/18/2024 increased lipid panel to 256, LDL 156. Started atorvastatin 10 mg at last visit, has been inconsistent, but cholesterol continues to increase January2025 to 275, LDL 202. Increase atorvastatin to 20 mg. Declines coronary calcium scan. # Patient up-to-date on flu/COVID-vaccine/ Tdap. Healthcare [place] [facility] [place] . PHQ-9 with a total score of 4, no concern regarding mental health at this time. Patient to follow-up in 4 months for repeat lipid, sooner as needed All quetsions answered to patients satisfaction. Patient verbalized understanding of diagnosis and treatments explained. To call sooner prior to next visit it any questions/concerns arise. Case discussed with collaborating physician Eric Schneider who reviewed the assessment and plan. Chart, medications, labs, vital signs reviewed. Dictation was accomplished with the use of [email or web address] voice recognition software, prone to medical misidentifications and grammatical errors. This is unintentional and the practitioner does try to identify and correct these, but some could still be present. Please do not hesitate to contact practitioner for clarification. 10/18/2024 Anxiety (ICD-10 - F41.9) # Folliculitis: Using Hibiclens, and tacrolimus ointmentWith no improvement. Referring to dermatology # Internal hemorrhoids post colonoscopy in 2022 at [facility]. Will obtain record, but treating with hydrocortisone enema as needed. No red flag symptoms at this time but did discuss criteria to call the office/emergency department criteria or criteria for referral. # Nephrolithiasis: Following with urologist, Past stones. #Atrial fibrillation: Patient was diagnosed with atrial fibrillation back in 2012. No longer on any medications, following with Dr. Indio Billy at [facility] cardiology. #Obesity BMI. Educated on lifestyle modifications., Have struggled with the holidays but ready to get back on track. #PTSD/anxiety: Patient states this is managed at this time. He does smoke marijuana for this, and had a medical marijuana card in [place] #Prediabetes: Hemoglobin A1c 6.2, Recent improved to 5.9 @ last visit.And now increased back to 6.2. Patient stopped taking berberine. Will continue taking berberine. Check in 3 to 4 months. #Hyperlipidemia: Total cholesterol 242 at last visit.Repeat value showing on 10/18/2024 increased lipid panel to 256, LDL 156. Start atorvastatin 10 mg. Discussed proper use and side effects repeat value in 3 to 4 months # Patient up-to-date on flu/COVID-vaccine due for Tdap obtained today. Healthcare proxy filled out it is his . PHQ-9 with a total score of 4, no concern regarding mental health at this time. Follow-up in 3 to 4 months for repeat hemoglobin A1c and lipid, sooner as needed. Patient seen and examined. Comprehensive discussion was done on the following. 1. Nutrition: It is important to follow a healthy diet based on lots of vegetables and legumes and good fat. Avoid processed food and processed carbohydrates. Prepare your own meals. Read labels and avoid high fructose corn syrup, processed chemicals added to increase shelf life and preprepared meals. Avoid fast foods. Eat slowly and plan meals for a week. Try to count calories and be mindful of daily calorie intake. Get into the habit of keeping an eye on your weight by using an appropriate scale. Learn to log exercise and discussed fitness Apps like Linq3/[employer] which can help keep log off calories taken versus calories burned. Local food should be preferred. Discussed Dirty Dozen Versus Clean Fifteen. Discussed healthy supplements like fish oil, Tumeric, Curcumin, Melatonin, Resveratrol, Probiotics, Vitamin-D, Alpha-Lipoic acid, Vitamin-D and coconut oil. 2. It is important to exercise regularly. Is a good habit to walk at least 30 minutes a day. Gentle weightlifting with standard precautions to protect the back. Finding activity like cycling or hiking and get into the habit of engaging in it. Stretching before and after the exercises important. It is also important to contact me if there are any problems like shortness of breath, chest pain, back pain and joint or muscle pain associated with the exercise. 3. Discussed age appropriate screening guidelines. Colonoscopy needs to start at age 50 with stool for occult blood as appropriate. There is a new test that can test for genetic abnormalities in the stool sample, Cologuard. This would not replace a colonoscopy but could be used as a screening tool for patients who do not want a colonoscopy. We discussed the importance of early detection of colon cancer. 4. Discussed current PSA screening. PSA screening can be done in most patients between age 50 and 65. However early detection of prostate cancer needs to carefully be balanced with complications with treatment. These include incontinence, impotence etc. Each patient should decide if they would like to have this test. 5. Discussed safe driving and no use of smart phone while driving 6. Age-appropriate immunizations were discussed. A tetanus booster is needed every 10 years. Flu vaccine is recommended every year just before the start of the flu season. Shingles vaccine is recommended after age 50 but not all insurances cover it. Pneumonia vaccine is given after age 65 unless there are certain comorbidities for which it is started earlier. 7. Diagnostic labs were discussed. These could include/not limited to CBC CMP and lipids with fasting blood glucose and insulin levels. Vitamin D and hemoglobin A1c testing might be appropriate. All quetsions answered to patients satisfaction. Patient verbalized understanding of diagnosis and treatments explained. To call sooner prior to next visit it any questions/concerns arise. Case discussed with collaborating physician Eric Schneider who reviewed the assessment and plan. Chart, medications, labs, vital signs reviewed. Dictation was accomplished with the use of [email or web address] voice recognition software, prone to medical misidentifications and grammatical errors. This is unintentional and the practitioner does try to identify and correct these, but some could still be present. Please do not hesitate to contact practitioner for clarification. 10/18/2024 PTSD (post-traumatic stress disorder) (ICD-10 - F43.10) # Folliculitis: Using Hibiclens, and tacrolimus ointmentWith no improvement. Referring to dermatology # Internal hemorrhoids post colonoscopy in 2022 at [facility]. Will obtain record, but treating with hydrocortisone enema as needed. No red flag symptoms at this time but did discuss criteria to call the office/emergency department criteria or criteria for referral. # Nephrolithiasis: Following with urologist, Past stones. #Atrial fibrillation: Patient was diagnosed with atrial fibrillation back in 2012. No longer on any medications, following with Dr. Indio Billy at [facility] cardiology. #Obesity BMI. Educated on lifestyle modifications., Have struggled with the holidays but ready to get back on track. #PTSD/anxiety: Patient states this is managed at this time. He does smoke marijuana for this, and had a medical marijuana card in [place] #Prediabetes: Hemoglobin A1c 6.2, Recent improved to 5.9 @ last visit.And now increased back to 6.2. Patient stopped taking berberine. Will continue taking berberine. Check in 3 to 4 months. #Hyperlipidemia: Total cholesterol 242 at last visit.Repeat value showing on 10/18/2024 increased lipid panel to 256, LDL 156. Start atorvastatin 10 mg. Discussed proper use and side effects repeat value in 3 to 4 months # Patient up-to-date on flu/COVID-vaccine due for Tdap obtained today. Healthcare proxy filled out it is his . PHQ-9 with a total score of 4, no concern regarding mental health at this time. Follow-up in 3 to 4 months for repeat hemoglobin A1c and lipid, sooner as needed. Patient seen and examined. Comprehensive discussion was done on the following. 1. Nutrition: It is important to follow a healthy diet based on lots of vegetables and legumes and good fat. Avoid processed food and processed carbohydrates. Prepare your own meals. Read labels and avoid high fructose corn syrup, processed chemicals added to increase shelf life and preprepared meals. Avoid fast foods. Eat slowly and plan meals for a week. Try to count calories and be mindful of daily calorie intake. Get into the habit of keeping an eye on your weight by using an appropriate scale. Learn to log exercise and discussed fitness Apps like Linq[employer] which can help keep log off calories taken versus calories burned. Local food should be preferred. Discussed Dirty Dozen Versus Clean Fifteen. Discussed healthy supplements like fish oil, Tumeric, Curcumin, Melatonin, Resveratrol, Probiotics, Vitamin-D, Alpha-Lipoic acid, Vitamin-D and coconut oil. 2. It is important to exercise regularly. Is a good habit to walk at least 30 minutes a day. Gentle weightlifting with standard precautions to protect the back. Finding activity like cycling or hiking and get into the habit of engaging in it. Stretching before and after the exercises important. It is also important to contact me if there are any problems like shortness of breath, chest pain, back pain and joint or muscle pain associated with the exercise. 3. Discussed age appropriate screening guidelines. Colonoscopy needs to start at age 50 with stool for occult blood as appropriate. There is a new test that can test for genetic abnormalities in the stool sample, Cologuard. This would not replace a colonoscopy but could be used as a screening tool for patients who do not want a colonoscopy. We discussed the importance of early detection of colon cancer. 4. Discussed current PSA screening. PSA screening can be done in most patients between age 50 and 65. However early detection of prostate cancer needs to carefully be balanced with complications with treatment. These include incontinence, impotence etc. Each patient should decide if they would like to have this test. 5. Discussed safe driving and no use of smart phone while driving 6. Age-appropriate immunizations were discussed. A tetanus booster is needed every 10 years. Flu vaccine is recommended every year just before the start of the flu season. Shingles vaccine is recommended after age 50 but not all insurances cover it. Pneumonia vaccine is given after age 65 unless there are certain comorbidities for which it is started earlier. 7. Diagnostic labs were discussed. These could include/not limited to CBC CMP and lipids with fasting blood glucose and insulin levels. Vitamin D and hemoglobin A1c testing might be appropriate. All quetsions answered to patients satisfaction. Patient verbalized understanding of diagnosis and treatments explained. To call sooner prior to next visit it any questions/concerns arise. Case discussed with collaborating physician Eric Schneider who reviewed the assessment and plan. Chart, medications, labs, vital signs reviewed. Dictation was accomplished with the use of [email or web address] voice recognition software, prone to medical misidentifications and grammatical errors. This is unintentional and the practitioner does try to identify and correct these, but some could still be present. Please do not hesitate to contact practitioner for clarification. 02/18/2025 Prediabetes (ICD-10 - R73.03) # Left shoulder pain: Fell 3 months ago on ice, followed with [facility], x-rays negative, PT with some improvement. Yesterday was lifting boxes around his house, and now is continuing to endorse left shoulder pain. Questioning rotator cuff ideology but patient wants to hold off on imaging at this time. Will start with meloxicam, discussed proper use, side effects. If continued symptoms, recommended following with orthopedics who he is already established with. # Folliculitis: Using Hibiclens, and tacrolimus ointment With Minimal improvement. Following with dermatology. Dermatology started patient on Dupixent. # Internal hemorrhoids post colonoscopy in 2022 at [facility]. Treating with hydrocortisone enema as needed. No red flag symptoms at this time but did discuss criteria to call the office/emergency department criteria or criteria for referral. # Nephrolithiasis: Following with urologist, Past stones. #Atrial fibrillation: Patient was diagnosed with atrial fibrillation back in 2012. No longer on any medications, following with Dr. Indio Billy at [facility] cardiology. #Obesity BMI. Educated on lifestyle modifications., Have struggled with the holidays but ready to get back on track. #PTSD/anxiety: Patient states this is managed at this time. He does smoke marijuana for this, and had a medical marijuana card in [place] #Prediabetes: A1c September 2024 6.2 improved to 5.29 January 2025. Continue berberine and lifestyle #Hyperlipidemia: Total cholesterol 242 at last visit.Repeat value showing on 10/18/2024 increased lipid panel to 256, LDL 156. Started atorvastatin 10 mg at last visit, has been inconsistent, but cholesterol continues to increase January2025 to 275, LDL 202. Increase atorvastatin to 20 mg. Declines coronary calcium scan. # Patient up-to-date on flu/COVID-vaccine/ Tdap. [place] [facility] [place] . PHQ-9 with a total score of 4, no concern regarding mental health at this time. Patient to follow-up in 4 months for repeat lipid, sooner as needed All quetsions answered to patients satisfaction. Patient verbalized understanding of diagnosis and treatments explained. To call sooner prior to next visit it any questions/concerns arise. Case discussed with collaborating physician Eric Schneider who reviewed the assessment and plan. Chart, medications, labs, vital signs reviewed. Dictation was accomplished with the use of [email or web address] voice recognition software, prone to medical misidentifications and grammatical errors. This is unintentional and the practitioner does try to identify and correct these, but some could still be present. Please do not hesitate to contact practitioner for clarification. 06/17/2025 Prediabetes (ICD-10 - R73.03) # Folliculitis: Using Hibiclens, and tacrolimus ointment With Minimal improvement. Following with dermatology. Dermatology started patient on Dupixent. # Internal hemorrhoids post colonoscopy in 2022 at [facility]. Treating with hydrocortisone enema as needed. No red flag symptoms at this time but did discuss criteria to call the office/emergency department criteria or criteria for referral. # Nephrolithiasis: Following with urologist, Past stones. #Atrial fibrillation: Patient was diagnosed with atrial fibrillation back in 2012. No longer on any medications, following with Dr. Indio Billy at [facility] cardiology. #Obesity BMI. Educated on lifestyle modifications. #PTSD/anxiety: Patient states this is managed at this time. He does smoke marijuana for this, and had a medical marijuana card in [place] #Prediabetes: A1c September 2024 6.2 improved to 5.29 January 2025. A1c May 2025 increased to 6.1.Stopped berberine, going to restart and continue with lifestyle. Declines metformin. #Hyperlipidemia: Total cholesterol 242 at last visit.Repeat value showing on 10/18/2024 increased lipid panel to 256, LDL 156. Cholesterol May 2025 204, LDL 132, Continue with atorvastatin 20 mg. Declines coronary calcium scan. Declines coronary calcium scan. # Patient up-to-date on flu/COVID-vaccine/ Tdap. Healthcare proxy filled out At [facility], it is his . PHQ-9 with a total score of 4, no concern regarding mental health at this time. Follow-up in October for complete physical with fasting labs, sooner as needed All quetsions answered to patients satisfaction. Patient verbalized understanding of diagnosis and treatments explained. To call sooner prior to next visit it any questions/concerns arise. Case discussed with collaborating physician Eric Schneider who reviewed the assessment and plan. Chart, medications, labs, vital signs reviewed. Dictation was accomplished with the use of [email or web address] voice recognition software, prone to medical misidentifications and grammatical errors. This is unintentional and the practitioner does try to identify and correct these, but some could still be present. Please do not hesitate to contact practitioner for clarification. 06/17/2025 Encounter for examination of blood pressure without abnormal findings (ICD-10 - Z01.30) # Folliculitis: Using Hibiclens, and tacrolimus ointment With Minimal improvement. Following with dermatology. Dermatology started patient on Dupixent. # Internal hemorrhoids post colonoscopy in 2022 at [facility]. Treating with hydrocortisone enema as needed. No red flag symptoms at this time but did discuss criteria to call the office/emergency department criteria or criteria for referral. # Nephrolithiasis: Following with urologist, Past stones. #Atrial fibrillation: Patient was diagnosed with atrial fibrillation back in 2012. No longer on any medications, following with Dr. Indio Billy at [facility] cardiology. #Obesity BMI. Educated on lifestyle modifications. #PTSD/anxiety: Patient states this is managed at this time. He does smoke marijuana for this, and had a medical marijuana card in [place] #Prediabetes: A1c September 2024 6.2 improved to 5.29 January 2025. A1c May 2025 increased to 6.1.Stopped berberine, going to restart and continue with lifestyle. Declines metformin. #Hyperlipidemia: Total cholesterol 242 at last visit.Repeat value showing on 10/18/2024 increased lipid panel to 256, LDL 156. Cholesterol May 2025 204, LDL 132, Continue with atorvastatin 20 mg. Declines coronary calcium scan. Declines coronary calcium scan. # Patient up-to-date on flu/COVID-vaccine/ Tdap. Healthcare proxy filled out At [facility], it is his . PHQ-9 with a total score of 4, no concern regarding mental health at this time. Follow-up in October for complete physical with fasting labs, sooner as needed All quetsions answered to patients satisfaction. Patient verbalized understanding of diagnosis and treatments explained. To call sooner prior to next visit it any questions/concerns arise. Case discussed with collaborating physician Eric Schneider who reviewed the assessment and plan. Chart, medications, labs, vital signs reviewed. Dictation was accomplished with the use of [email or web address] voice recognition software, prone to medical misidentifications and grammatical errors. This is unintentional and the practitioner does try to identify and correct these, but some could still be present. Please do not hesitate to contact practitioner for clarification. 10/18/2024 Erectile dysfunction, unspecified erectile dysfunction type (ICD-10 - N52.9) # Folliculitis: Using Hibiclens, and tacrolimus ointmentWith no improvement. Referring to dermatology # Internal hemorrhoids post colonoscopy in 2022 at [facility]. Will obtain record, but treating with hydrocortisone enema as needed. No red flag symptoms at this time but did discuss criteria to call the office/emergency department criteria or criteria for referral. # Nephrolithiasis: Following with urologist, Past stones. #Atrial fibrillation: Patient was diagnosed with atrial fibrillation back in 2012. No longer on any medications, following with Dr. Indio Billy at [facility] cardiology. #Obesity BMI. Educated on lifestyle modifications., Have struggled with the holidays but ready to get back on track. #PTSD/anxiety: Patient states this is managed at this time. He does smoke marijuana for this, and had a medical marijuana card in [place] #Prediabetes: Hemoglobin A1c 6.2, Recent improved to 5.9 @ last visit.And now increased back to 6.2. Patient stopped taking berberine. Will continue taking berberine. Check in 3 to 4 months. #Hyperlipidemia: Total cholesterol 242 at last visit.Repeat value showing on 10/18/2024 increased lipid panel to 256, LDL 156. Start atorvastatin 10 mg. Discussed proper use and side effects repeat value in 3 to 4 months # Patient up-to-date on flu/COVID-vaccine due for Tdap obtained today. Healthcare proxy filled out it is his . PHQ-9 with a total score of 4, no concern regarding mental health at this time. Follow-up in 3 to 4 months for repeat hemoglobin A1c and lipid, sooner as needed. Patient seen and examined. Comprehensive discussion was done on the following. 1. Nutrition: It is important to follow a healthy diet based on lots of vegetables and legumes and good fat. Avoid processed food and processed carbohydrates. Prepare your own meals. Read labels and avoid high fructose corn syrup, processed chemicals added to increase shelf life and preprepared meals. Avoid fast foods. Eat slowly and plan meals for a week. Try to count calories and be mindful of daily calorie intake. Get into the habit of keeping an eye on your weight by using an appropriate scale. Learn to log exercise and discussed fitness Apps like Linq3/Geo[employer]ames which can help keep log off calories taken versus calories burned. Local food should be preferred. Discussed Dirty Dozen Versus Clean Fifteen. Discussed healthy supplements like fish oil, Tumeric, Curcumin, Melatonin, Resveratrol, Probiotics, Vitamin-D, Alpha-Lipoic acid, Vitamin-D and coconut oil. 2. It is important to exercise regularly. Is a good habit to walk at least 30 minutes a day. Gentle weightlifting with standard precautions to protect the back. Finding activity like cycling or hiking and get into the habit of engaging in it. Stretching before and after the exercises important. It is also important to contact me if there are any problems like shortness of breath, chest pain, back pain and joint or muscle pain associated with the exercise. 3. Discussed age appropriate screening guidelines. Colonoscopy needs to start at age 50 with stool for occult blood as appropriate. There is a new test that can test for genetic abnormalities in the stool sample, Cologuard. This would not replace a colonoscopy but could be used as a screening tool for patients who do not want a colonoscopy. We discussed the importance of early detection of colon cancer. 4. Discussed current PSA screening. PSA screening can be done in most patients between age 50 and 65. However early detection of prostate cancer needs to carefully be balanced with complications with treatment. These include incontinence, impotence etc. Each patient should decide if they would like to have this test. 5. Discussed safe driving and no use of smart phone while driving 6. Age-appropriate immunizations were discussed. A tetanus booster is needed every 10 years. Flu vaccine is recommended every year just before the start of the flu season. Shingles vaccine is recommended after age 50 but not all insurances cover it. Pneumonia vaccine is given after age 65 unless there are certain comorbidities for which it is started earlier. 7. Diagnostic labs were discussed. These could include/not limited to CBC CMP and lipids with fasting blood glucose and insulin levels. Vitamin D and hemoglobin A1c testing might be appropriate. All quetsions answered to patients satisfaction. Patient verbalized understanding of diagnosis and treatments explained. To call sooner prior to next visit it any questions/concerns arise. Case discussed with collaborating physician Eric Schneider who reviewed the assessment and plan. Chart, medications, labs, vital signs reviewed. Dictation was accomplished with the use of [email or web address] voice recognition software, prone to medical misidentifications and grammatical errors. This is unintentional and the practitioner does try to identify and correct these, but some could still be present. Please do not hesitate to contact practitioner for clarification. 10/18/2024 Hyperlipidemia (ICD-10 - E78.5) # Folliculitis: Using Hibiclens, and tacrolimus ointmentWith no improvement. Referring to dermatology # Internal hemorrhoids post colonoscopy in 2022 at [facility]. Will obtain record, but treating with hydrocortisone enema as needed. No red flag symptoms at this time but did discuss criteria to call the office/emergency department criteria or criteria for referral. # Nephrolithiasis: Following with urologist, Past stones. #Atrial fibrillation: Patient was diagnosed with atrial fibrillation back in 2012. No longer on any medications, following with Dr. Indio Billy at [facility] cardiology. #Obesity BMI. Educated on lifestyle modifications., Have struggled with the holidays but ready to get back on track. #PTSD/anxiety: Patient states this is managed at this time. He does smoke marijuana for this, and had a medical marijuana card in [place] #Prediabetes: Hemoglobin A1c 6.2, Recent improved to 5.9 @ last visit.And now increased back to 6.2. Patient stopped taking berberine. Will continue taking berberine. Check in 3 to 4 months. #Hyperlipidemia: Total cholesterol 242 at last visit.Repeat value showing on 10/18/2024 increased lipid panel to 256, LDL 156. Start atorvastatin 10 mg. Discussed proper use and side effects repeat value in 3 to 4 months # Patient up-to-date on flu/COVID-vaccine due for Tdap obtained today. Healthcare proxy filled out it is his . PHQ-9 with a total score of 4, no concern regarding mental health at this time. Follow-up in 3 to 4 months for repeat hemoglobin A1c and lipid, sooner as needed. Patient seen and examined. Comprehensive discussion was done on the following. 1. Nutrition: It is important to follow a healthy diet based on lots of vegetables and legumes and good fat. Avoid processed food and processed carbohydrates. Prepare your own meals. Read labels and avoid high fructose corn syrup, processed chemicals added to increase shelf life and preprepared meals. Avoid fast foods. Eat slowly and plan meals for a week. Try to count calories and be mindful of daily calorie intake. Get into the habit of keeping an eye on your weight by using an appropriate scale. Learn to log exercise and discussed fitness Apps like Linq3/Geo[employer]ames which can help keep log off calories taken versus calories burned. Local food should be preferred. Discussed Dirty Dozen Versus Clean Fifteen. Discussed healthy supplements like fish oil, Tumeric, Curcumin, Melatonin, Resveratrol, Probiotics, Vitamin-D, Alpha-Lipoic acid, Vitamin-D and coconut oil. 2. It is important to exercise regularly. Is a good habit to walk at least 30 minutes a day. Gentle weightlifting with standard precautions to protect the back. Finding activity like cycling or hiking and get into the habit of engaging in it. Stretching before and after the exercises important. It is also important to contact me if there are any problems like shortness of breath, chest pain, back pain and joint or muscle pain associated with the exercise. 3. Discussed age appropriate screening guidelines. Colonoscopy needs to start at age 50 with stool for occult blood as appropriate. There is a new test that can test for genetic abnormalities in the stool sample, Cologuard. This would not replace a colonoscopy but could be used as a screening tool for patients who do not want a colonoscopy. We discussed the importance of early detection of colon cancer. 4. Discussed current PSA screening. PSA screening can be done in most patients between age 50 and 65. However early detection of prostate cancer needs to carefully be balanced with complications with treatment. These include incontinence, impotence etc. Each patient should decide if they would like to have this test. 5. Discussed safe driving and no use of smart phone while driving 6. Age-appropriate immunizations were discussed. A tetanus booster is needed every 10 years. Flu vaccine is recommended every year just before the start of the flu season. Shingles vaccine is recommended after age 50 but not all insurances cover it. Pneumonia vaccine is given after age 65 unless there are certain comorbidities for which it is started earlier. 7. Diagnostic labs were discussed. These could include/not limited to CBC CMP and lipids with fasting blood glucose and insulin levels. Vitamin D and hemoglobin A1c testing might be appropriate. All quetsions answered to patients satisfaction. Patient verbalized understanding of diagnosis and treatments explained. To call sooner prior to next visit it any questions/concerns arise. Case discussed with collaborating physician Eric Schneider who reviewed the assessment and plan. Chart, medications, labs, vital signs reviewed. Dictation was accomplished with the use of [email or web address] voice recognition software, prone to medical misidentifications and grammatical errors. This is unintentional and the practitioner does try to identify and correct these, but some could still be present. Please do not hesitate to contact practitioner for clarification. 10/18/2024 Prediabetes (ICD-10 - R73.03) # Folliculitis: Using Hibiclens, and tacrolimus ointmentWith no improvement. Referring to dermatology # Internal hemorrhoids post colonoscopy in 2022 at [facility]. Will obtain record, but treating with hydrocortisone enema as needed. No red flag symptoms at this time but did discuss criteria to call the office/emergency department criteria or criteria for referral. # Nephrolithiasis: Following with urologist, Past stones. #Atrial fibrillation: Patient was diagnosed with atrial fibrillation back in 2012. No longer on any medications, following with Dr. Indio Billy at [facility] cardiology. #Obesity BMI. Educated on lifestyle modifications., Have struggled with the holidays but ready to get back on track. #PTSD/anxiety: Patient states this is managed at this time. He does smoke marijuana for this, and had a medical marijuana card in [place] #Prediabetes: Hemoglobin A1c 6.2, Recent improved to 5.9 @ last visit.And now increased back to 6.2. Patient stopped taking berberine. Will continue taking berberine. Check in 3 to 4 months. #Hyperlipidemia: Total cholesterol 242 at last visit.Repeat value showing on 10/18/2024 increased lipid panel to 256, LDL 156. Start atorvastatin 10 mg. Discussed proper use and side effects repeat value in 3 to 4 months # Patient up-to-date on flu/COVID-vaccine due for Tdap obtained today. Healthcare proxy filled out it is his . PHQ-9 with a total score of 4, no concern regarding mental health at this time. Follow-up in 3 to 4 months for repeat hemoglobin A1c and lipid, sooner as needed. Patient seen and examined. Comprehensive discussion was done on the following. 1. Nutrition: It is important to follow a healthy diet based on lots of vegetables and legumes and good fat. Avoid processed food and processed carbohydrates. Prepare your own meals. Read labels and avoid high fructose corn syrup, processed chemicals added to increase shelf life and preprepared meals. Avoid fast foods. Eat slowly and plan meals for a week. Try to count calories and be mindful of daily calorie intake. Get into the habit of keeping an eye on your weight by using an appropriate scale. Learn to log exercise and discussed fitness Apps like [employer]camp[employer]/Geo[employer]ames which can help keep log off calories taken versus calories burned. Local food should be preferred. Discussed Dirty Dozen Versus Clean Fifteen. Discussed healthy supplements like fish oil, Tumeric, Curcumin, Melatonin, Resveratrol, Probiotics, Vitamin-D, Alpha-Lipoic acid, Vitamin-D and coconut oil. 2. It is important to exercise regularly. Is a good habit to walk at least 30 minutes a day. Gentle weightlifting with standard precautions to protect the back. Finding activity like cycling or hiking and get into the habit of engaging in it. Stretching before and after the exercises important. It is also important to contact me if there are any problems like shortness of breath, chest pain, back pain and joint or muscle pain associated with the exercise. 3. Discussed age appropriate screening guidelines. Colonoscopy needs to start at age 50 with stool for occult blood as appropriate. There is a new test that can test for genetic abnormalities in the stool sample, Cologuard. This would not replace a colonoscopy but could be used as a screening tool for patients who do not want a colonoscopy. We discussed the importance of early detection of colon cancer. 4. Discussed current PSA screening. PSA screening can be done in most patients between age 50 and 65. However early detection of prostate cancer needs to carefully be balanced with complications with treatment. These include incontinence, impotence etc. Each patient should decide if they would like to have this test. 5. Discussed safe driving and no use of smart phone while driving 6. Age-appropriate immunizations were discussed. A tetanus booster is needed every 10 years. Flu vaccine is recommended every year just before the start of the flu season. Shingles vaccine is recommended after age 50 but not all insurances cover it. Pneumonia vaccine is given after age 65 unless there are certain comorbidities for which it is started earlier. 7. Diagnostic labs were discussed. These could include/not limited to CBC CMP and lipids with fasting blood glucose and insulin levels. Vitamin D and hemoglobin A1c testing might be appropriate. All quetsions answered to patients satisfaction. Patient verbalized understanding of diagnosis and treatments explained. To call sooner prior to next visit it any questions/concerns arise. Case discussed with collaborating physician Eric Schneider who reviewed the assessment and plan. Chart, medications, labs, vital signs reviewed. Dictation was accomplished with the use of [email or web address] voice recognition software, prone to medical misidentifications and grammatical errors. This is unintentional and the practitioner does try to identify and correct these, but some could still be present. Please do not hesitate to contact practitioner for clarification. 10/18/2024 Encounter for immunization (ICD-10 - Z23) # Folliculitis: Using Hibiclens, and tacrolimus ointmentWith no improvement. Referring to dermatology # Internal hemorrhoids post colonoscopy in 2022 at [facility]. Will obtain record, but treating with hydrocortisone enema as needed. No red flag symptoms at this time but did discuss criteria to call the office/emergency department criteria or criteria for referral. # Nephrolithiasis: Following with urologist, Past stones. #Atrial fibrillation: Patient was diagnosed with atrial fibrillation back in 2012. No longer on any medications, following with Dr. Indio Billy at [facility] cardiology. #Obesity BMI. Educated on lifestyle modifications., Have struggled with the holidays but ready to get back on track. #PTSD/anxiety: Patient states this is managed at this time. He does smoke marijuana for this, and had a medical marijuana card in [place] #Prediabetes: Hemoglobin A1c 6.2, Recent improved to 5.9 @ last visit.And now increased back to 6.2. Patient stopped taking berberine. Will continue taking berberine. Check in 3 to 4 months. #Hyperlipidemia: Total cholesterol 242 at last visit.Repeat value showing on 10/18/2024 increased lipid panel to 256, LDL 156. Start atorvastatin 10 mg. Discussed proper use and side effects repeat value in 3 to 4 months # Patient up-to-date on flu/COVID-vaccine due for Tdap obtained today. Healthcare proxy filled out it is his . PHQ-9 with a total score of 4, no concern regarding mental health at this time. Follow-up in 3 to 4 months for repeat hemoglobin A1c and lipid, sooner as needed. Patient seen and examined. Comprehensive discussion was done on the following. 1. Nutrition: It is important to follow a healthy diet based on lots of vegetables and legumes and good fat. Avoid processed food and processed carbohydrates. Prepare your own meals. Read labels and avoid high fructose corn syrup, processed chemicals added to increase shelf life and preprepared meals. Avoid fast foods. Eat slowly and plan meals for a week. Try to count calories and be mindful of daily calorie intake. Get into the habit of keeping an eye on your weight by using an appropriate scale. Learn to log exercise and discussed fitness Apps like Linq3/GeoGames which can help keep log off calories taken versus calories burned. Local food should be preferred. Discussed Dirty Dozen Versus Clean Fifteen. Discussed healthy supplements like fish oil, Tumeric, Curcumin, Melatonin, Resveratrol, Probiotics, Vitamin-D, Alpha-Lipoic acid, Vitamin-D and coconut oil. 2. It is important to exercise regularly. Is a good habit to walk at least 30 minutes a day. Gentle weightlifting with standard precautions to protect the back. Finding activity like cycling or hiking and get into the habit of engaging in it. Stretching before and after the exercises important. It is also important to contact me if there are any problems like shortness of breath, chest pain, back pain and joint or muscle pain associated with the exercise. 3. Discussed age appropriate screening guidelines. Colonoscopy needs to start at age 50 with stool for occult blood as appropriate. There is a new test that can test for genetic abnormalities in the stool sample, Cologuard. This would not replace a colonoscopy but could be used as a screening tool for patients who do not want a colonoscopy. We discussed the importance of early detection of colon cancer. 4. Discussed current PSA screening. PSA screening can be done in most patients between age 50 and 65. However early detection of prostate cancer needs to carefully be balanced with complications with treatment. These include incontinence, impotence etc. Each patient should decide if they would like to have this test. 5. Discussed safe driving and no use of smart phone while driving 6. Age-appropriate immunizations were discussed. A tetanus booster is needed every 10 years. Flu vaccine is recommended every year just before the start of the flu season. Shingles vaccine is recommended after age 50 but not all insurances cover it. Pneumonia vaccine is given after age 65 unless there are certain comorbidities for which it is started earlier. 7. Diagnostic labs were discussed. These could include/not limited to CBC CMP and lipids with fasting blood glucose and insulin levels. Vitamin D and hemoglobin A1c testing might be appropriate. All quetsions answered to patients satisfaction. Patient verbalized understanding of diagnosis and treatments explained. To call sooner prior to next visit it any questions/concerns arise. Case discussed with collaborating physician Eric Schneider who reviewed the assessment and plan. Chart, medications, labs, vital signs reviewed. Dictation was accomplished with the use of [email or web address] voice recognition software, prone to medical misidentifications and grammatical errors. This is unintentional and the practitioner does try to identify and correct these, but some could still be present. Please do not hesitate to contact practitioner for clarification. Plan Of Treatment Pending Test Test Name Order Date EKG 07/19/2023 CBC (COMPLETE BLOOD COUNT) 11/24/2023 COMPREHENSIVE METABOLIC PANEL 11/24/2023 LIPID PANEL, STANDARD 05/15/2023 LIPID PANEL, STANDARD 07/17/2023 LIPID PANEL, STANDARD 06/17/2025 LIPID PANEL, STANDARD 10/18/2023 LIPID PANEL, STANDARD 07/17/2024 LIPID PANEL, STANDARD 10/18/2024 LIPID PANEL, STANDARD 02/18/2025 COMPREHENSIVE METABOLIC PANEL 07/17/2024 COMPREHENSIVE METABOLIC PANEL 10/18/2023 COMPREHENSIVE METABOLIC PANEL 06/17/2025 COMPREHENSIVE METABOLIC PANEL 05/15/2023 URIC ACID 07/17/2024 CBC (INCLUDES DIFF/PLT) 10/18/2023 CBC (INCLUDES DIFF/PLT) 07/17/2024 CBC (INCLUDES DIFF/PLT) 05/15/2023 CBC (INCLUDES DIFF/PLT) 06/17/2025 URINALYSIS, COMPLETE 06/17/2025 URINALYSIS, COMPLETE 05/15/2023 URINALYSIS, COMPLETE 10/18/2023 HEMOGLOBIN A1c 07/17/2024 HEMOGLOBIN A1c 10/18/2024 HEMOGLOBIN A1c 06/17/2025 HEMOGLOBIN A1c 02/18/2025 HEMOGLOBIN A1c 07/17/2023 HEMOGLOBIN A1c 05/15/2023 PSA (FREE AND TOTAL) 05/15/2023 PSA (FREE AND TOTAL) 06/17/2025 TSH 05/15/2023 VITAMIN D,25-OH,TOTAL,IA 10/18/2023 US Renal and Bladder 11/24/2023 Next Appt Details Provider Name:AISSATOU BAILON, 11/05/2025 09:00:00 AM, [address], [place], [id number], Insurance Providers Payer Name Payer Address Payer Phone Subscriber Number Group Number Insured Name Patient Relationship to Insured Coverage Start Date Coverage End Date [facility] [address] [place] [address] [id number] Eh Lopez Self - patient is the insured 3 Medical (General) History Medical History History ICD Code Prediabetes R73.03 Hyperlipidemia E78.5 Seasonal allergies J30.2 PTSD (post-traumatic stress disorder) F4 3.10 Anxiety F41.9 Nephrolithiasis N20.0 Paroxysmal atrial fibrillation I48.0 Surgical History Surgery Date(Month/Year) RTC surgery bilaterally 2013 atrial fibrillation 2013 Hospitalization History Reason Date(Month/Year) atrial fibrillation 2012
--- OUTSIDE RECORDS SUMMARY | 2025-10-07 08:41 | XMS_ITS | Patient Health Record ---
Author Organization [facility] Holly schaffer Billing Info Address [address] [place] [id number] Phone [phone] Care Team Providers Care Senior Relationship Manager Name Role Phone None, None Primary Care Provider BEN Damian MD [facility] [phone] Allergies No Known Allergies Reason For Referral No Information Medications Medication SIG (Take, Route, Frequency, Duration) Notes Start Date End Date Diagnosis (ICD Code) Status Tamsulosin HCl 0.4 MG Capsule 1 capsule Orally Once a day; Duration: 30 day(s) Active Social History Tobacco Use: Social History Observation Description Date Details (start date - stop date) Never Smoker NA - NA Sex Observation Social History Observation Description Sex Observation Male Social History Social History Social Info Question Answer Notes Tobacco Status: Patient is a never smoker Illicit Drug Use: Patient/Family reports: No illicit d rug use Alcohol Use: Patient does not use alcohol *DO NOT USE * Tobacco Status (CQW): Patient is Never smoker Additional Details Category Social Info Options Details Social History Caffeine: coffee, daily Plan Of Treatment Pending Test Test Name Order Date STONE ANALYSIS ([id number]) 09/24/2021 Insurance Providers Payer Name Payer Address Payer Phone Subscriber Number Group Number Insured Name Patient Relationship to Insured Coverage Start Date Coverage End Date [employer] OAP/[id number] [address] [place], [place] [id number] Eh Almeida Self - patient is the insured Medical (General) History Surgical History Surgery Date(Month/Year) CYSTO/URETERO W/LITHOTRIPSY 09/07/21
[2025-10-07 09:01] LABS: Resp Syncy Virus RNA Qual PCR NEGATIVE (Negative); SARS COV2 PCR INHOUSE NEGATIVE (Negative)
[2025-10-07 09:04] LABS: Hematocrit 49.7 % (42.0-52.0); Hemoglobin 16.7 g/dl (14.0-18.0); Imm Gran Abs Auto 0.01 X10*3/uL (0.00-0.03); Imm Gran Pct Auto 0.2 % (0.0-0.4); Lymphocytes Absolute Auto 1.1 X10*3/uL (1.2-4.9); MANUAL DIFF FLAG SCAN; Mean Corpuscular HGB Conc 33.6 g/dl (31.0-36.0); Mean Corpuscular Hemoglobin 30.3 pg (27.0-33.0); Mean Corpuscular Volume 90.2 fL (80.0-98.0); NRBC Abs Auto 0.000 X10*3/uL (0.0-0.012); NRBC Pct Auto 0.0 /100WBC (0.0-0.2); Platelet Count 179 X10*3/uL (160-400); Red Blood Count 5.51 X10*6/uL (4.60-5.80); SCAN SMEAR FLAG 1; White Blood Count 6.1 X10*3/uL (4.8-10.8)
[2025-10-07 09:18] LABS: Alanine Aminotransferase 23 U/L (0-40); Albumin Level 4.0 g/dL (3.5-5.0); Alkaline Phosphatase 93 U/L (39-117); Anion Gap 9 (12-20); Aspartate Amino Transferase 30 U/L (5-37); Blood Urea Nitrogen 19 mg/dL (9-16); Calcium 9.0 mg/dL (8.4-10.2); Carbon Dioxide 27 mmol/L (22-29); Chloride 105 mmol/L (96-108); Creatinine Clr Calc Pharmacy 93.0; Estimated Glomerular Filt Rate > 60; Lipase 51 U/L (8-78); Magnesium 2.2 mg/dL (1.6-2.6); Potassium 3.9 mmol/L (3.3-5.1); Sodium 137 mmol/L (135-145); Total Protein 6.9 g/dL (6.5-8.0)
--- NOTE | 2025-10-07 09:32 | ED.GENADULT ---
HPI - General Adult General Chief complaint: General Medical Stated complaint: flu symptoms, blood in urine Time Seen by Provider: 10/07/25 08:30 Source: patient Mode of arrival: ambulatory Limitations: no limitations History of Present Illness ED Provider: GERARDO CROOK PA-C HPI narrative: 49 year old male with pmhx significant for eczema presents to the ED today for evaluation of productive cough, body aches, and subjective fevers, headache, x3 days. He has been taking theraflu at home which temporarily relieves his symptoms. No known sick contacts. Additionally reports concern for blood in his urine which he noticed yesterday. Reports seeing a bit of blood when he begins urinating. Denies dysuria, increased urinary frequency or urgency. Admits to history of renal stones, does not feel similar. Denies any flank pain, abdominal pain, N/V, penile lesions or discharge. Denies concern for STDs. Related Data Previous Rx's ?Medication ?Instructions ?Recorded benzonatate 100 mg capsule 100 mg PO BID PRN cough #20 caps 10/07/25 Allergies Allergy/AdvReac Type Severity Reaction Status Date / Time No Known Allergies Allergy Verified 10/07/25 08:06 Review of Systems Review of Systems: Yes all other systems are reviewed and are negative PMFSH Past Medical History Attestation statement: The following information was validated with the patient. Source: old records reviewed and nursing notes reviewed Social History Social History Advance Directives: No Advance Directives Information Provided: No Physical Exam ED Vital Signs: Vital Signs - 24 hr 10/07/25 08:03 10/07/25 09:52 Temperature 98.1 F 98.1 F Pulse Rate 78 78 Respiratory Rate 18 18 Blood Pressure 114/75 114/75 Pulse Oximetry 99 99 Oxygen Delivery Method Room Air Room Air BMI result Body Mass Index 29.5 vital signs stable, afebrile General: well appearing, in no acute distress. Pt sleeping comfortably. Skin: Warm, dry, intact. No rashes or lesions. Head: Normocephalic, atraumatic. EENT: Hearing is intact b/l. Conjunctiva clear. PERRLA. EOM intact. Moist mucous membranes.? Neck: Supple without LAD Cardiac: Chest wall symmetric. RRR Lungs: Normal respiratory effort without accessory muscle use. CTA bilaterally. No rales, rhonchi or wheezes. Abdomen: Soft, non-tender, non-distended. No rebound tenderness or guarding. Positive BS x4. Back: No CVA tenderness. No midline spinous or paraspinal tenderness. No step off deformity. Ext: Upper and lower extremities atraumatic, without tenderness, deformity, swelling or erythema. Full ROM throughout Neuro: AOx3. Normal speech. Ambulating with steady gait Course Course Course Narrative: CBC without leukocytosis or left shift. No anemia, H and H stable. Chemistry without acute electrolyte abnormality requiring intervention. You appears mildly dehydrated however no EMELYN. Liver function and lipase WNL. Urine without infection or blood. He has tested positive for influenza a, negative COVID, RSV. > no imaging warranted at this time. Educated on supportive management. Patient has remained stable throughout ED visit today. Discussed worrisome signs and symptoms and when to return to the ED. All questions answered at this time. Patient is agreeable with disposition and stable for discharge. Medications Administered Discontinued Medications Generic Name Dose Route Start Last Admin Trade Name Jesusq PRN Reason Stop Dose Admin Acetaminophen 650 mg 10/07/25 09:35 10/07/25 09:48 Acetaminophen 325 Mg Tablet PO 10/07/25 09:36 650 mg ONCE ONE Administration Lidocaine 1 patch 10/07/25 09:33 10/07/25 09:48 Lidocaine 4 % Patch Adh..Patch TRANSDERMA 10/07/25 09:34 1 patch ONCE ONE Administration Protocol Medical Decision Making Medical Decision Making [facility] Narrative: 49 year old male with pmhx significant for eczema presents to the ED today for evaluation of productive cough, body aches, and subjective fevers, headache, x3 days. Differential diagnosis includes viral syndrome, anemia, electrolyte abnormality, UTI, renal colic, nephrolithiasis Plan for viral swabs, labs, urine, re-evaluation. Differential Diagnosis Differential Diagnoses: The differential diagnosis associated with the presentation includes as above. Admission/Observation not indicated. Lab Data [facility] Lab Attestation statement: I reviewed the patient's lab results. as above. 10/07/25 08:58 10/07/25 08:58 Labs: Lab Results 10/07/25 10/07/25 Range/Units 08:13 08:58 WBC 6.1 (4.8-10.8) X10*3/uL RBC 5.51 (4.60-5.80) X10*6/uL Hgb 16.7 (14.0-18.0) g/dl Hct 49.7 (42.0-52.0) % MCV 90.2 (80.0-98.0) fL MCH 30.3 (27.0-33.0) pg MCHC 33.6 (31.0-36.0) g/dl RDW 12.9 (11.0-16.0) % Plt Count 179 (160-400) X10*3/uL MPV 10.0 (9.4-12.4) fL Immature Gran % (Auto) 0.2 (0.0-0.4) % Neut % (Auto) 60.9 (45-73) % Lymph % (Auto) 18.6 L (20-40) % [place] % (Auto) 20.1 H (2-11) % Eos % (Auto) 0.0 (0-4) % Baso % (Auto) 0.2 (0-2) % Lymph # (Auto) 1.1 L (1.2-4.9) X10*3/uL [place] # (Auto) 1.2 (0.1-1.2) X10*3/uL Eos # (Auto) 0.0 (0.0-0.4) X10*3/uL Baso # (Auto) 0.0 (0.0-0.2) X10*3/uL Abs Immat Gran (auto) 0.01 (0.00-0.03) X10*3/uL Absolute Neuts (auto) 3.7 (2.0-8.3) x10*3/uL Absolute Nucleated RBC 0.000 (0.0-0.012) X10*3/uL Nucleated RBC % (auto) 0.0 (0.0-0.2) /100WBC Smear Tech's Comments VERIFIED Sodium 137 (135-145) mmol/L Potassium 3.9 (3.3-5.1) mmol/L Chloride 105 (96-108) mmol/L Carbon Dioxide 27 (22-29) mmol/L Anion Gap 9 L (12-20) BUN 19 H (9-16) mg/dL Creatinine 1.21 (0.5-1.4) mg/dL Estim Creat Clear Calc 93.0 Estimated GFR > 60 Random Glucose 110 (60-115) mg/dL Calcium 9.0 (8.4-10.2) mg/dL Magnesium 2.2 (1.6-2.6) mg/dL Total Bilirubin 0.9 (0.0-1.0) mg/dL AST 30 (5-37) U/L ALT 23 (0-40) U/L Alkaline Phosphatase 93 (39-117) U/L Total Protein 6.9 (6.5-8.0) g/dL Albumin 4.0 (3.5-5.0) g/dL Lipase 51 (8-78) U/L Urine Color Dark Yellow Urine Appearance Clear Urine pH 5.5 (5.0-9.0) Ur Specific [place] >= 1.030 H (1.005-1.025) Urine Protein 30 (1+) H (Neg-Trace) mg/dL Urine Glucose (UA) Negative (Negative) mg/dL Urine Ketones 40 (Negative) mg/dL Urine Blood Negative (Negative) Urine Nitrite Negative (Negative) Ur Leukocyte Esterase Trace H (Negative) Urine RBC 0-2 (0-2) /HPF Urine WBC 0-5 (0-5) /HPF Ur Squamous Epith Cells 0-2 (0-2) /HPF Urine Bacteria None Seen (None Seen) Hyaline Casts 3-5 (0-2) /LPF Influenza Type A (PCR) POSITIVE A (Negative) Influenza Type B (PCR) NEGATIVE (Negative) RSV RNA Qual (PCR) NEGATIVE (Negative) SARS-CoV-2 RNA (RT-PCR) NEGATIVE (Negative) Prescription Management I considered prescription management with: Other (Candice Montano) Social Determinants Patient?s care significantly limited by Social Determinants of Health including: Other Social Determinant of Health Critical Care Time Critical Care Time Critical Care Time: No Discharge Plan Discharge Clinical Impression: Influenza A Patient Disposition: Home, Self-Care Instructions: Influenza (ED) Additional Instructions: You tested positive for influenza A. You tested negative for covid and rsv. Your blood work is reassuring. Your urine does not demonstrate any infection or blood. Influenza is a virus and does not warrant treatment with antibiotics. Treatment is supportive. I am sending Candice Montano to your pharmacy for you to take as needed for cough. Take Tylenol and Motrin at home as needed for body aches/fevers. Follow up with your primary care provider Return with any new or worsening symptoms. in the case of an emergency call 911. Prescriptions: New benzonatate 100 mg capsule 100 mg PO BID PRN (Reason: cough) Qty: 20 0RF Referrals: Eligio Damon PA-C [Primary Care Provider, Primary Care] Stand Alone Forms: Work/School Release Interventions: ED Discharge Assessment Last Done: 10/07/25 09:52 Discharge Date/Time: 10/07/25 09:53 Print Language: Turkish
[2025-10-07] MEDS: Lidocaine 4 % Patch ADH..PATCH 1 PATCH TRANSDERMA (09:48)
[2025-10-07 09:52] VITALS: BP 114/75; PULSE 78; RESP 18; TEMP 36.7; O2SAT 99
== END 2025-10-07 09:53 | disposition home or self-care (01) ==
PROVIDERS: Physician Assistant Medical; Emergency Provider Emergency Medicine Emergency Medical Services; PCP Physician Assistant
DX: J10.1 Influenza due to other identified influenza virus with other respiratory manifestations (principal); M79.10 Myalgia, unspecified site; R05.9 Cough, unspecified; R50.9 Fever, unspecified; R51.9 Headache, unspecified
CPT/HCPCS: 36415; 80053; 81001; 83690; 83735; 85025; 87637; 99283